=== PATIENT | male | born 1980 | race Two or more races ===

== ENCOUNTER 2022-03-03 09:32 | Emergency (ER) | payer OTHER, BC ==
[~2022-03-03] VITALS: Ht 180.3 cm; Wt 97.5 kg
[2022-03-03] MEDS ORDERED: MELATONIN10 M2 PO (09:57)
[2022-03-03] MEDS ORDERED: CYCLOBENZAPRINE10 MG PO (10:38)
[2022-03-03] MEDS ORDERED: ULTRAM50 MG PO (10:38)
== END 2022-03-03 10:51 | disposition home or self-care (01) ==
LOC: ED 09:32
DX: S39.012A Strain of muscle, fascia and tendon of lower back, initial encounter (principal); X58.XXXA Exposure to other specified factors, initial encounter
CPT/HCPCS: 99283

== ENCOUNTER 2023-08-26 16:00 | Emergency (ER) | payer OTHER, BC ==
[~2023-08-26] VITALS: Ht 180.3 cm; Wt 103.6 kg
[~2023-08-26 16:00] MED LIST: CYCLOBENZAPRINE10 MG PO; MELATONIN10 M2 PO; ULTRAM50 MG PO
[2023-08-26] MEDS ORDERED: KETOROLAC TROMETHAMINE 60 MG/2 ML VIAL IM ONE (16:30)
[2023-08-26] MEDS ORDERED: HYDROCODONE BIT/ACETAMINOPHEN 5/325 MG 1 TAB HOME.PACK PO ONE (17:15)
[2023-08-26 17:28] VITALS: BP 136/81
== END 2023-08-26 17:29 | disposition home or self-care (01) ==
LOC: ED 16:00
DX: S00.83XA Contusion of other part of head, initial encounter (principal); Y04.0XXA Assault by unarmed brawl or fight, initial encounter
CPT/HCPCS: 70486; 96372; 99284-25; A9270; J1885